=== PATIENT | male | born 1990 | race Caucasian/White ===

== ENCOUNTER 2021-05-14 15:34 | Emergency (ER) | payer SELFPAY | END 2021-05-14 15:44 | disposition home or self-care (01) | LOC: MW.ED 15:34 | DX: Z02.89 Encounter for other administrative examinations (principal); Z91.030 Bee allergy status; Z88.8 Allergy status to other drugs, medicaments and biological substances | CPT/HCPCS: 99282; 99283 ==

== ENCOUNTER 2021-06-25 16:31 | Emergency (ER) | payer SELFPAY ==
[2021-06-25] MEDS ORDERED: Bacitracin Oint 1 GM U/D Packet TOP ONE (16:46)
[2021-06-25] MEDS ORDERED: Diphtheria,Pertussis(Acell),Tetanus Vaccine 0.5 ML Syringe IM ONE (16:46)
[2021-06-25 17:31] LABS: ACETAMINOPHEN <2.0 ug/mL; BLOOD UREA NITROGEN,BUN 16 mg/dL (7.0-18.0); CARBON DIOXIDE,CO2 23.7 mmol/L (21.0-32.0); CHLORIDE,CL 104 mmol/L (98-107); GLUCOSE RANDOM 81 mg/dL (74-106); POTASSIUM,K 4.4 mmol/L (3.5-5.1); SODIUM,NA 139 mmol/L (136-148)
== END 2021-06-25 21:25 ==
LOC: MW.ED 16:31
DX: F32.A Depression, unspecified (principal); S21.119A Laceration without foreign body of unspecified front wall of thorax without penetration into thoracic cavity, initial encounter; S00.81XA Abrasion of other part of head, initial encounter; Z91.030 Bee allergy status; Z88.8 Allergy status to other drugs, medicaments and biological substances; Z20.822 Contact with and (suspected) exposure to COVID-19; X78.9XXA Intentional self-harm by unspecified sharp object, initial encounter
CPT/HCPCS: 36415; 80053; 80143; 80179; 80305-QW; 80307; 81003; 85025; 90471; 99285; U0002

== ENCOUNTER 2022-07-11 17:06 | Emergency (ER) | payer BC ==
[2022-07-11] MEDS ORDERED: Levofloxacin 500 MG Tab PO STA (21:39)
== END 2022-07-11 22:20 | disposition home or self-care (01) ==
LOC: MW.ED 17:06
DX: J18.9 Pneumonia, unspecified organism (principal)
CPT/HCPCS: 71046; 93005; 99284; A9270; 99283